=== PATIENT | male | born 1955 | race Asian ===

== ENCOUNTER 2020-06-03 07:55 | Outpatient (REF) | payer BC, SELFPAY ==
[2020-06-03 08:26] LABS: MANUAL DIFF FLAG NO
[2020-06-03 08:33] LABS: Basophils Percent Auto 0.7 % (0-2); Eosinophils Percent Auto 0.6 % (0-4); Hematocrit 46.3 % (42-52); Hemoglobin 15.9 g/dl (14.0-18.0); Imm Gran Abs Auto 0.02 X10*3/uL (0.00-0.03); Imm Gran Pct Auto 0.4 % (0.0-0.4); Lymphocytes Absolute Auto 1.9 X10*3/uL (1.2-4.9); Lymphocytes Percent Auto 34.9 % (20-40); Mean Corpuscular HGB Conc 34.3 g/dl (31.0-36.0); Mean Corpuscular Hemoglobin 31.8 pg (27.0-33.0); Mean Corpuscular Volume 92.6 fL (80-98); Mean Platelet Volume 9.1 fL (9.4-12.4); Monocytes Absolute Auto 0.3 X10*3/uL (0.1-1.2); Monocytes Percent Auto 5.8 % (2-11); Neutrophils Absolute Auto 3.1 X10*3/uL (2.0-8.3); Neutrophils Percent Auto 57.6 % (45-73); Platelet Count 179 X10*3/uL (160-400); Red Cell Distribution Width 12.4 % (11.0-16.0); White Blood Count 5.4 X10*3/uL (4.8-10.8)
[2020-06-03 09:10] LABS: Alanine Aminotransferase < 6 U/L (0-40); Albumin Level 4.6 g/dL (3.5-5.0); Alkaline Phosphatase 59 U/L (39-117); Anion Gap 13 (12-20); Aspartate Amino Transferase 17 U/L (5-37); Bilirubin Total 1.1 mg/dL (0.0-1.0); Blood Urea Nitrogen 15 mg/dL (9-16); Calcium 9.1 mg/dL (8.4-10.2); Carbon Dioxide 29 mmol/L (22-29); Chloride 102 mmol/L (96-108); Cholesterol 197 mg/dL; Estimated Glomerular Filt Rate 56; Glucose Fasting 119 mg/dL (60-99); HDL Cholesterol 41 mg/dL; LDL Cholesterol Calculated 115 mg/dl; Sodium 140 mmol/L (135-145); Total Protein 7.7 g/dL (6.5-8.0); Triglycerides 209 mg/dL
[2020-06-03 09:16] LABS: Prostate Specific Antigen 0.46 ng/mL (<0.05-4.0); Thyroid Stimulating Hormone 1.15 mIU/mL (0.32-4.0); Vitamin D 25-OH Total 27.5 ng/mL (>30)
== END 2020-06-03 07:56 | disposition home or self-care (01) ==
LOC: HO.LAB 07:55
PROVIDERS: Visit Provider Internal Medicine
DX: G20 Parkinson's disease (principal); F41.9 Anxiety disorder, unspecified; E55.9 Vitamin D deficiency, unspecified
CPT/HCPCS: 36415; 80053; 80061; 82306; 84153; 84443; 85025

== ENCOUNTER → 2020-07-02 14:19 | Outpatient (BNVA) | payer BC, SELFPAY | PROVIDERS: PCP Internal Medicine; Referring Provider Internal Medicine; Visit Provider Internal Medicine Cardiovascular Disease | DX: I20.0 Unstable angina (principal) | CPT/HCPCS: 93005 ==

== ENCOUNTER → 2020-07-04 07:24 | Outpatient (REF) | payer BC, SELFPAY ==
--- NOTE | 2020-07-04 07:29 | CA_ITS ---
Transthoracic Echocardiogram Patient (Last, First, Middle): Rufina Velasquez, Gender: Male Date of : 1955 Age: 65 Procedure Date: 07/04/2020 Procedure Type: Transthoracic Echocardiogram Location: OP Height: 180.34 cm Weight: 77.57 kg BSA: 1.97 m2 Heart Rate: bpm BP: 136 / 80 mmHg Telecommunication Equipment Repairer: KATARINA Referring MD: Basilio Mcwilliams MD Outdoor Emergency Care Technician: Chandan Clarke MD Symptoms: I20.0 - Unstable angina Study Quality: Fair ECG Rhythm: Sinus Conclusions: - 1. Hyperdynamic LV systolic function with possible basal posterior wall motion abnormality with impaired relaxation filling pattern 2. Normal cardiac valvular Doppler 3. Normal RV systolic pressure 4. No pericardial effusion Findings Left Ventricle Normal left ventricular size, thickness, and systolic function. The visually estimated ejection fraction is between 65-70%. Spectral Doppler is indicative of an impaired relaxation filling pattern. E/E prime ratio is between 8 and 15 consistent with indeterminate filling pressures. Wall Motion Rest Echo Findings The basal inferolateral segment is hypokinetic. The entire apex, anterior wall, entire septum, inferior wall, anterolateral wall, and mid inferolateral segment are hyperkinetic. Right Ventricle Normal right ventricular cavity size and systolic function. Atria Both atria are normal in size. There is no evidence of interatrial shunt. Aortic Valve The aortic valve structure and function is likely normal. There is no aortic valve stenosis. There is no aortic valve regurgitation. Mitral Valve Likely normal mitral valve structure and function. There is trace mitral valve regurgitation. There is no mitral valve stenosis. Pulmonic Valve The pulmonic valve was not well visualized. Tricuspid Valve Likely normal tricuspid valve structure and function. There is trace tricuspid valve regurgitation. The right ventricular systolic pressure is normal. The right ventricular systolic pressure is 25 mmHg. Normal right atrial pressure. There is no evidence of pulmonary hypertension. Great Vessels All visible segments of the aorta are normal in size. The pulmonary artery was not well visualized. Venous The inferior vena cava is normal in size and collapses greater than 50% with inspiration. Pericardium/Pleural There is no evidence of pericardial effusion. Prior Study Comparison No significant change compared to prior study dated: 04/25/2019. Measurements 2D Linear Measurements IVSd: 1.06 0.6-0.9/0.6-1.0 cm LVIDd: 4.45 3.9-5.3/4.2-5.9 cm LVIDd Index: 2.26 2.4-3.2/2.2-3.1 cm/m2 LVIDs: 2.35 2.0-3.6 cm LVPWd: 0.80 0.7-1.1 cm Ao Root: 2.60 2.1-3.5 cm LA Diam: 3.60 2.7-3.8/3.0-4.0 cm LAIDs Index: 1.83 1.5-2.3 cm/m2 LV Mass: 169.64 67-162/88-224 g LV Mass Index: 86.11 43-95/49-115 g/m2 LVOT Diam: 2.00 3.0+(-)1.3 cm 2D Systolic Function EF 4C: 69.90 >55% EF 2C: 77.80 >55% EF BiP: 74.20 >55% Mitral Valve MV Pk E: 0.85 MV PK A: 1.13 MV Decel Time: 63.00 E/A: 0.80 E'Lateral: 9.09 E'Medial: 8.12 E/E' Med: 10.50 E/E' Lat: 9.40 PHT: 19.00 MVA PHT: 11.58 Decel Person: 13.47 Aortic Valve AoV Pk Juan Antonio: 1.55 AoV Pk Grad: 10.00 LVOT LVOT Pk Juan Antonio: 1.14 LVOT Mn Juan Antonio: 0.80 LVOT VTI: 0.22 LVOT Pk Grad: 5.00 LVOT Mn Grad: 3.00 LVOT Diam: 2.00 LVOT Area: 3.14 Diastolic Function MV Pk E: 0.85 MV Pk A: 1.13 E/A: 0.80 E'Medial: 8.12 E/E' Med: 10.50 E' Laterial: 9.09 E/E' Lat: 9.40 Tricuspid Valve TR Pk Juan Antonio: 2.37 TR Pk Grad: 22.00 RA Press: 3.00 RVSP: 25.00 Great Vessels Aorta Ao Root-2D: 2.60 2.0-3.7 cm Ao Asc: 3.70 2.1-3.4 cm Updated in Other Vendor System with Status of Final Chandan Clarke MD electronically signed on 07/05/2020 11:34:38 AM with status of Final
== END ==
LOC: HO.CARD 07:24
PROVIDERS: PCP Internal Medicine; Visit Provider Internal Medicine Cardiovascular Disease
DX: I20.0 Unstable angina (principal)
CPT/HCPCS: 93306

== ENCOUNTER → 2020-07-24 09:29 | Outpatient (BNVA) | payer BC, SELFPAY | PROVIDERS: PCP Internal Medicine; Visit Provider Internal Medicine Cardiovascular Disease | DX: Z76.89 Persons encountering health services in other specified circumstances (principal) ==

== ENCOUNTER → 2020-10-15 10:12 | Outpatient (BNVA) | payer BC, SELFPAY | PROVIDERS: PCP Internal Medicine; Visit Provider Internal Medicine Cardiovascular Disease ==

== ENCOUNTER → 2021-04-22 10:02 | Outpatient (BNVA) | payer BC, SELFPAY | PROVIDERS: PCP Internal Medicine; Referring Provider Internal Medicine; Visit Provider Internal Medicine Cardiovascular Disease | DX: I25.10 Atherosclerotic heart disease of native coronary artery without angina pectoris (principal); Z95.1 Presence of aortocoronary bypass graft | CPT/HCPCS: 93005 ==

== ENCOUNTER → 2021-10-26 09:32 | Outpatient (BNVA) | payer BC, SELFPAY | PROVIDERS: PCP Internal Medicine; Visit Provider Internal Medicine Cardiovascular Disease | DX: I25.10 Atherosclerotic heart disease of native coronary artery without angina pectoris (principal); Z95.1 Presence of aortocoronary bypass graft; Z79.899 Other long term (current) drug therapy | CPT/HCPCS: 99212 ==

== ENCOUNTER 2023-12-14 10:18 | Outpatient (AMB) | payer BC, SELFPAY ==
--- NOTE | 2023-12-14 10:55 | A.OFFVIS_ITS ---
Vital Signs 12/14/23 10:56 Height 5 ft 11 in Weight 169 lb 5.04 oz BMI 23.6 BP 120/69 Blood Pressure Location Lt brachial Position Sitting Pulse 56 Intake Visit Reasons: Follow up per PCP- CAD Streaming Media Specialist Required: No Accompanied by: Self / Same As Patient Allergies No Known Allergies Allergy (Verified 10/26/21 09:34) seasonal Allergy (Unknown, Uncoded 10/26/21 09:34) unknown Medication List - Last Reconciled 12/14/23 by Basilio Mcwilliams MD amlodipine 5 mg PO DAILY aspirin (Adult Low Dose Aspirin) 81 mg PO DAILY atorvastatin 40 mg PO DAILY carbidopa-levodopa 25-100 mg 1 tab PO TID clopidogrel 75 mg PO DAILY escitalopram oxalate 30 mg PO Q OTHER DAY metoprolol tartrate 25 mg PO BID pantoprazole 40 mg PO DAILY HPI Comments Details: Pleasant 68-year-old gentleman with background history of Parkinson disease and coronary artery disease underwent bypass surgery in the past. He had GUERRERO to LAD and vein graft to the diagonal artery. since then he has been doing well. Clinically stable and has no chest pain or shortness of breath. Exercise regularly without any exertional symptoms. Overall doing excellent. 12/14/23: He returns for follow-up. He has been walking without any chest discomfort or shortness of breath. His main complaints are due to Parkinson's disease and he feels that he has slowed down. He is following closely with Dr. Maradiaga. From cardiovascular point of view he appears to be quite stable. [facility] Medical History (Updated 10/15/20 @ 14:26 by Basilio Mcwilliams MD) Parkinson disease Surgical History H/O heart bypass surgery Family History Father Lung cancer Colon cancer Mother Stroke Brother CVD (cardiovascular disease) Social History Alcohol intake: never Patient Tobacco Use Status: Never used Tobacco Review of Systems Const Denies chills, Denies fatigue, Denies fever(s), Denies frequent falls, Denies weakness, Denies weight gain and Denies weight loss ENT Denies dizziness Card Denies chest pain, Denies leg edema, Denies lightheadedness, Denies palpitations, Denies dyspnea and Denies dyspnea on exertion Resp Denies cough, Denies dyspnea and Denies dyspnea on exertion GI Denies hematochezia Musc Denies abnormal gait, Denies muscle weakness, Denies numbness, Denies radiating pain into limb and Denies tingling Neuro Denies abnormal gait, Denies dizziness, Denies frequent falls, Denies numbness, Denies tingling and Denies weakness Endo Denies fatigue and Denies palpitations Physical Exam Vital Signs: Last Vital Signs Pulse 56 12/14/23 10:56 BP 120/69 12/14/23 10:56 BMI result Body Mass Index 23.6 GENERAL APPEARANCE: in no acute distress, well developed, well nourished. NECK/THYROID: no carotid bruit, no jugular venous distention. SKIN: Midline sternotomy scar. HEART: no murmurs, bradycardic, S1, S2 normal. LUNGS: clear to auscultation bilaterally. ABDOMEN: normal, bowel sounds present, soft, nontender, nondistended. EXTREMITIES: no clubbing, cyanosis, or edema. PERIPHERAL PULSES: equal. NEUROLOGIC: nonfocal, alert and oriented. PSYCH: mood/affect full range. Office Procedures EKG Details: Sinus bradycardia 56 beats per minute, normal axis, otherwise normal EKG, QTC 418 milliseconds. [id number], Complete Assessment & Plan Assessment & Plan (1) S/P CABG x 2: Comment: As above Code(s): Z95.1 - Presence of aortocoronary bypass graft Category: Medical (2) CAD (coronary artery disease): Comment: Stable Code(s): I25.10 - Atherosclerotic heart disease of [place] coronary artery without angina pectoris Category: Medical Plan Pleasant 68 gentleman with background history of Parkinson's disease and coronary disease status post bypass surgery with GUERRERO to LAD and saphenous vein graft to diagonal. He has been doing well since the bypass surgery and has no anginal symptoms. Clinically stable. No changes in medications required. He should have once a year fasting lipid panel. His LDL target is less than 70. No medication changes indicated currently. He will follow closely with neurology for Parkinson's disease. Follow-up with us in 1 year. Thank you for allowing me to participate in the care of your patient. Please feel free to contact me if you have any questions. Coding Level of Care Code Est Pt Level 4 (42596) Diagnoses S/P CABG x 2 Z95.1 CAD (coronary artery disease) I25.10 CPT Codes EKG - CPT: 23567-[id number], Complete ([id number])
[2023-12-14 10:56] VITALS: BP 120/69; PULSE 56; BMI 23.6
== END 2023-12-14 11:14 | disposition home or self-care (01) ==
PROVIDERS: PCP Internal Medicine; Visit Provider Internal Medicine Cardiovascular Disease
DX: Z95.1 Presence of aortocoronary bypass graft (principal); I25.10 Atherosclerotic heart disease of native coronary artery without angina pectoris
CPT/HCPCS: 93010; 99214

== ENCOUNTER → 2023-12-14 10:18 | Outpatient (BNVA) | payer BC, SELFPAY | PROVIDERS: PCP Internal Medicine; Visit Provider Internal Medicine Cardiovascular Disease | DX: I25.10 Atherosclerotic heart disease of native coronary artery without angina pectoris (principal); G20.A1 Parkinson's disease without dyskinesia, without mention of fluctuations; Z95.1 Presence of aortocoronary bypass graft | CPT/HCPCS: 93005 ==

== ENCOUNTER 2025-04-17 08:08 | Outpatient (AMB) | payer BC, SELFPAY ==
--- NOTE | 2025-04-17 08:56 | A.OFFVIS_ITS ---
Intake Visit Reasons: 6 Months F/U Allergies No Known Allergies Allergy (Verified 10/26/21 09:34) seasonal Allergy (Unknown, Uncoded 10/26/21 09:34) unknown HPI Comments Details: The patient is a 70-year-old male presenting with medication refill needs rela kaleb to Parkinson's Disease management and secondary to management for Anxiety Disorder. Parkinson's Disease is primarily controlled with Carbidopa/Levodopa, taking two specific dosage regimens. Adjustment to therapy with Escitalopram from a previous dosage of 30 mg to the current 10 mg reflects continued stability in handling anxiety symptoms. Additionally, his Cerebral Microvascular Ischemic Disease is an existing condition managed as an element of his long-term neurological care. [facility] Medical History (Updated 04/17/25 @ 08:57 by Dereje Maradiaga MD) Parkinson disease Surgical History H/O heart bypass surgery Family History Father Lung cancer Colon cancer Mother Stroke Brother CVD (cardiovascular disease) Social History Alcohol intake: never Patient Tobacco Use Status: Never used Tobacco Review of Systems Const Details: - Neurological: Reports improvement in energy levels; denies new neurological symptoms. - Psychiatric: Reports improved management of anxiety; denies new exacerbations. Physical Exam Neuro Other: Mental Status: Alert and oriented to person, place, and time. Normal attention. Normal spontaneous speech, fluency, and comprehension. No obvious issues with mood and memory. Affect is appropriate. Cranial Nerves: CN II: Visual menezes full to confrontation, visual acuity intact. CN III, IV, : Pupils equal, round, reactive to light and accommodation. Extraocular movements are normal. CN V: Facial sensation is normal. CN VII: Facial movements symmetrical. CN VIII: Hearing intact to bedside conversation is normal. CN IX, X: Palate elevates symmetrically. CN XI: Shoulder shrug and head turn symmetrical. CN XII: Tongue midline without atrophy or fasciculations. Coordination: Quwgfw-[id number]-oyxe and irli-hn-wlra testing normal. No dysmetria. Gait and Station: No obvious gait abnormality. No ataxia or instability. Extrapyramidal: Full facial expressions and blinking. No rigidity. Movements are appropriate with no tremor or abnormality. Speech: Normal; no dysarthria or tremor. Assessment & Plan Assessment & Plan (1) Parkinson disease: Code(s): G20 - Parkinson's disease Category: Medical Qualifiers: Dyskinesia presence: without dyskinesia Fluctuating manifestations: with fluctuating manifestations Qualified Code(s): G20.A2 - Parkinson's disease without dyskinesia, with fluctuations Plan Impression: 1. Parkinson's disease, well managed with present regimen 2. Anxiety, controlled with escitalopram 3. Moderately severe cerebral microvascular ischemic changes Recommendations: Carbidopa/levodopa 25/100 1 3 times a day Carbidopa/levodopa 50/200 extended release twice a day Pramipexole 0.5 mg 3 times a day Amantadine 100 mg twice a day Escitalopram 10 mg a day Throughout the discussion, I emphasized the importance of continued medication adherence for the management of Parkinson?s Disease, with specific dosing details tailored to optimize therapeutic effectiveness while minimizing side effects. Regarding the patient's anxiety, we reviewed the successful adjustment of Escitalopram dosage and the importance of maintaining its current level to prevent exacerbation. I reinforced the necessity to reach out should symptoms recur or if there are changes in condition that require re-evaluation. Follow-up was planned based on these medication management requirements and ongoing condition monitoring, aligning with patient expectations and current health status. Medications: New carbidopa-levodopa 50-200 mg ER divide evenly over waking hours 1 tab PO BID 180 tabs 1RF pramipexole 0.5 mg PO TID 270 tabs 1RF amantadine HCl 100 mg PO BID 180 tabs 1RF Changed From escitalopram oxalate 30 mg PO Q OTHER DAY To escitalopram oxalate 10 mg PO ONCE 90 tabs 1RF Refilled carbidopa-levodopa 25-100 mg 1 tab PO TID 270 tabs 1RF Coding Level of Care Code Est Pt Level 4 (52904) Diagnoses Parkinson's disease without dyskinesia, with fluctuating manifestations G20.A2 Dyskinesia presence: without dyskinesia Fluctuating manifestations: with fluctuating manifestations
== END 2025-04-17 09:07 | disposition home or self-care (01) ==
LOC: HO.HSM 08:08
PROVIDERS: PCP Internal Medicine; Referring Provider Internal Medicine; Visit Provider Psychiatry & Neurology Neurology
DX: G20.A2 Parkinson's disease without dyskinesia, with fluctuations (principal)
CPT/HCPCS: 99214

== ENCOUNTER 2025-07-16 08:57 | Outpatient (AMB) | payer BC, SELFPAY ==
--- NOTE | 2025-07-16 08:31 | MHC.PC.OV ---
Intake Visit Reasons: physical - see comments Allergies No Known Allergies Allergy (Verified 10/26/21 09:34) seasonal Allergy (Unknown, Uncoded 10/26/21 09:34) unknown [facility] Medical History (Updated 04/17/25 @ 08:57 by Dereje Maradiaga MD) Parkinson disease Surgical History (Updated 07/01/25 @ 07:31 by Saritha Frazier) History of colonoscopy (~08/24/19) H/O heart bypass surgery Family History Father Lung cancer Colon cancer Mother Stroke Brother CVD (cardiovascular disease) Social History Alcohol intake: never Patient Tobacco Use Status: Never used Tobacco Physical exam (Primary Care) Tobacco/Smoking Status: Tobacco use Status Patient Tobacco Use Status Never used Tobacco 04/22/21 10:27 Coding Level of Care Code New Pt Level 4 (21665) Add On Problem Visit Only Diagnoses Parkinson's disease without dyskinesia, with fluctuating manifestations G20.A2 Dyskinesia presence: without dyskinesia Fluctuating manifestations: with fluctuating manifestations Assessment & Plan Assessment & Plan (1) Parkinson disease: Code(s): G20 - Parkinson's disease Category: Medical Qualifiers: Dyskinesia presence: without dyskinesia Fluctuating manifestations: with fluctuating manifestations Qualified Code(s): G20.A2 - Parkinson's disease without dyskinesia, with fluctuations Plan: History of Present Illness - The patient is a 70 year old male presenting for an annual physical exam. - He reports feeling stable at this time. - His last primary care visit was six months ago with his previous provider, Dr. Hernandez. - He has a history of Parkinson's disease for 4 years, managed by Dr. Patricio. - Associated symptoms include slowness and occasional shaking. - He remains independent with activities of daily living, such as dressing himself. - The patient has a history of coronary artery bypass surgery. - He is followed by a command and control systems integrator, Dr. Vargas. - Current cardiac medications include a statin, metoprolol, and Plavix. - He is also prescribed citalopram for depression. - Medications for Parkinson's include carbidopa-levodopa, amantadine, and pramipexole, all prescribed by Dr. Patricio. - For preventative care, the patient reports having had a flu shot. - His last colonoscopy was about 5 years ago at [facility] and was normal. Social History - The patient is still working part-time. - He lives with his . - He is able to walk on his own and perform his own daily tasks. - He is still driving but does not drive a lot at night. Review of Systems - General: Reports feeling stable. - Neurological: Reports occasional shaking and slowness. Physical Exam General: Appearance normal, both eyes and all related structures Nutritional Appearance: Well nourished Orientation/consciousness: Patient oriented x3 Limitations: No limitations, but patient reports slow movements and occasional shaking due to Parkinson's disease Head: Normal to inspection Neck: Normal visual inspection Chest: Normal palpation of entire chest wall Respiratory: Normal respiratory effort Neurology: Patient oriented x3, reports Parkinson's disease for 4 years, able to perform daily activities independently, still driving but not frequently at night Results Plan - I will order blood work for the patient. - Patient states he has already requested refills. - The patient can make his own appointment for an eye exam, as no referral is needed. - Recommend follow-up in six months. Discussion Notes I have placed an order for blood work. I advised the patient that he does not need a referral for an eye exam and can make the appointment himself. I recommended that the patient follow up in six months. Patient Instructions - Please go to the lab on [address] in [place] to have your blood work done. - You can make an appointment for an eye exam on your own, as you do not need a referral. - Please schedule a follow-up appointment in six months. Orders: Orders Basic Metabolic Panel Today G20.A2 - Parkinson's disease without dyskinesia, with fluctuations Prostate Specific Antigen Scr Today G20.A2 - Parkinson's disease without dyskinesia, with fluctuations Complete Blood Count no Diff Today G20.A2 - Parkinson's disease without dyskinesia, with fluctuations Lipid Panel Today G20.A2 - Parkinson's disease without dyskinesia, with fluctuations Liver Panel Today G20.A2 - Parkinson's disease without dyskinesia, with fluctuations Thyroid Stimulating Hormone Today G20.A2 - Parkinson's disease without dyskinesia, with fluctuations UA and rflx microscopic Today G20.A2 - Parkinson's disease without dyskinesia, with fluctuations
== END 2025-07-16 08:58 | disposition home or self-care (01) ==
LOC: HO.HMCSH 08:57
PROVIDERS: PCP Internal Medicine; Visit Provider Internal Medicine
DX: G20.A2 Parkinson's disease without dyskinesia, with fluctuations (principal)

== ENCOUNTER 2025-07-22 07:03 | Outpatient (REF) | payer BC, SELFPAY ==
[2025-07-22 10:19] LABS: Hematocrit 50.0 % (42.0-52.0); Hemoglobin 16.5 g/dl (14.0-18.0); Mean Corpuscular HGB Conc 33.0 g/dl (31.0-36.0); Mean Corpuscular Hemoglobin 32.0 pg (27.0-33.0); Mean Corpuscular Volume 96.9 fL (80.0-98.0); NRBC Abs Auto 0.000 X10*3/uL (0.0-0.012); NRBC Pct Auto 0.0 /100WBC (0.0-0.2); Platelet Count 190 X10*3/uL (160-400); Red Blood Count 5.16 X10*6/uL (4.60-5.80); White Blood Count 5.3 X10*3/uL (4.8-10.8)
[2025-07-22 10:58] LABS: Thyroid Stimulating Hormone 2.80 uIU/mL (0.32-4.0)
[2025-07-22 10:59] LABS: Alanine Aminotransferase 17 U/L (0-40); Albumin Level 4.8 g/dL (3.5-5.0); Anion Gap 13 (12-20); Aspartate Amino Transferase 32 U/L (5-37); Blood Urea Nitrogen 17 mg/dL (9-16); Calcium 9.7 mg/dL (8.4-10.2); Carbon Dioxide 27 mmol/L (22-29); Chloride 105 mmol/L (96-108); Cholesterol 119 mg/dL (<200); Estimated Glomerular Filt Rate > 60; HDL Cholesterol 42 mg/dL (>40); Potassium 3.9 mmol/L (3.3-5.1); Sodium 141 mmol/L (135-145); Total Protein 7.7 g/dL (6.5-8.0); Triglycerides 142 mg/dL (<150)
[2025-07-22 11:00] LABS: Alkaline Phosphatase 79 U/L (39-117)
== END 2025-07-22 07:04 | disposition home or self-care (01) ==
LOC: HO.HMGCLDS 07:03
PROVIDERS: PCP Internal Medicine; Visit Provider Internal Medicine
DX: G20.A2 Parkinson's disease without dyskinesia, with fluctuations (principal); Z12.5 Encounter for screening for malignant neoplasm of prostate; Z13.6 Encounter for screening for cardiovascular disorders; Z13.29 Encounter for screening for other suspected endocrine disorder
CPT/HCPCS: 36415; 80048; 80061; 80076; 84153; 84443; 85027